=== PATIENT | male | born 1990 | race Caucasian/White ===

== ENCOUNTER 2023-11-24 18:42 | Emergency (ER) | payer MEDICAID ==
[~2023-11-24] VITALS: Ht 180.3 cm; Wt 72.6 kg
[2023-11-24 18:51] VITALS: BP_SYST 116; PULSE 100; RESP 16; TEMP 97.6; O2SAT 99
[2023-11-24] MEDS: IBUPROFEN 600 MG TABLET PO ONE (20:54)
[2023-11-24] MEDS: ONDANSETRON 4 MG ODT TAB PO ONE (20:54)
[2023-11-24] MEDS: LORazepam 1 MG TABLET PO ONE (20:54)
[2023-11-24] MEDS: METOCLOPRAMIDE HCL 10 MG/2 ML VIAL IM ONE (21:00)
[2023-11-25 01:54] VITALS: BP_SYST 116; PULSE 88; RESP 18; TEMP 98.3; O2SAT 98
== END 2023-11-25 01:52 ==
LOC: SED 18:42
DX: J68.9 Unspecified respiratory condition due to chemicals, gases, fumes and vapors (principal); R11.2 Nausea with vomiting, unspecified; I10 Essential (primary) hypertension
CPT/HCPCS: 99284; 96372; Q0162; J2765